=== PATIENT | male | born 1980 | race Caucasian/White ===

== ENCOUNTER → 2022-05-07 | Outpatient (CLI) | payer OTHER ==
[~2022-05-07] MED LIST: DOSS PO; MEDROL4 MG PO; NEURONTIN 100100 MG PO; PERCOCET 7.5-31 EACH PO; ROBAXIN-750750 MG PO; ZANAFLEX4 MG PO; ZOFRAN4 MG PO
== END ==
LOC: RAD 13:05
DX: R07.9 Chest pain, unspecified (principal)
CPT/HCPCS: 71046

== ENCOUNTER → 2022-06-12 | Outpatient (CLI) | payer OTHER | LOC: HEART 5 07:30 | DX: R00.2 Palpitations (principal) ==